=== PATIENT | female | born 1955 | race Caucasian/White ===

== ENCOUNTER 2016-12-07 17:50 | Emergency (ER) | payer MEDICARE, OTHER ==
[2016-12-07] MEDS ORDERED: IBUPROFEN 600 MG TABLET ONE (21:31)
[2016-12-07] MEDS ORDERED: CYCLOBENZAPRINE HCL 10 MG TABLET ONE (21:31)
[2016-12-07] MEDS ORDERED: PREDNISONE 20 MG TABLET ONE (21:32)
== END 2016-12-07 22:07 | disposition home or self-care (01) ==
LOC: ED 17:50
DX: M54.5 Low back pain (principal); R10.30 Lower abdominal pain, unspecified
CPT/HCPCS: 99282 ×2; J7512